=== PATIENT | male | born 1950 | race American Indian/Alaskan Native ===

== ENCOUNTER 2017-01-24 06:12 | Day surgery (SDC) | payer MEDICARE, OTHER ==
[2017-01-24] MEDS ORDERED: ECOTRIN PO ONE (06:29)
[2017-01-24 07:06] LABS: Basophils % (Auto) 0.9 % (0.0-1.8); Hematocrit 40.1 % (35.5-45.6); Hemoglobin 13.2 gm/dl (11.8-15.2); Mean Corpuscular HGB Conc 33 % (32-34); Mean Corpuscular Hemoglobin 30 pg (28-32); Mean Corpuscular Volume 91 fl (84-94); Platelet Count 240 K/mm3 (140-440); Red Blood Count 4.39 M/mm3 (3.65-5.03); Red Cell Distribution Width 14.2 % (13.2-15.2); White Blood Count 6.8 K/mm3 (4.5-11.0)
[2017-01-24 07:16] LABS: INR 0.93 (0.87-1.13)
[2017-01-24 07:17] LABS: Anion Gap 15 mmol/L; BUN/Creatinine Ratio 15.71; Blood Urea Nitrogen 11 mg/dL (9-20); Carbon Dioxide 24 mmol/L (22-30); Chloride 102.7 mmol/L (98-107); Glucose 118 mg/dL (75-100); Potassium 4.4 mmol/L (3.6-5.0); Sodium 137 mmol/L (137-145)
[2017-01-24] MEDS: NACL 0.9% 500 ML 500 ML IV SCH ×2 (07:30→07:45)
[2017-01-24] MEDS ORDERED: XYLOCAINE 2% INFILTRATI ONE (08:05)
[2017-01-24] MEDS ORDERED: HEPARIN/NS 5000 UNIT/500ML(CATH LAB) 1,000 ML IR ONE (08:05)
[2017-01-24] MEDS ORDERED: CALAN ONE (08:05)
[2017-01-24] MEDS ORDERED: HEPARIN 10,000 UNITS/10 ML ONE (08:05)
[2017-01-24] MEDS ORDERED: NITROGLYCERIN SYRINGE 3 ML ONE (08:06)
[2017-01-24] MEDS ORDERED: SUBLIMAZE ONE (08:24)
[2017-01-24] MEDS: VERSED ONE ×2 (08:31→08:45)
--- NOTE | 2017-01-24 13:21 | Short Stay Summary ---
Short Stay Documentation Date of service: 01/24/17 - History H&P: obtained from office - Allergies and Medications Current Medications: Allergies Sulfa (Sulfonamide Antibiotics) Adverse Reaction (Severe, Verified 09/16/13 06: 32) Seizure Home Medications Medication Instructions Recorded Confirmed Last Taken Type Ascorbic Acid [Vitamin C] 1 tab PO QDAY 09/16/13 01/24/17 01/23/17 History Aspirin [Aspirin TAB] 81 mg PO QDAY 09/16/13 01/24/17 01/23/17 History Cholecalciferol (Vitamin D3) 1 tab PO QDAY 09/16/13 01/24/17 01/23/17 History [Vitamin D3] Clopidogrel Bisulfate [Clopidogrel] 75 mg PO QDAY 09/16/13 01/24/17 01/23/17 History Cyanocobalamin [Vitamin B-12] 1 tab PO QDAY 09/16/13 01/24/17 01/23/17 History Gabapentin 300 mg PO BID 09/16/13 01/24/17 01/23/17 History Lansoprazole [Prevacid] 30 mg PO QDAY 09/16/13 01/24/17 01/23/17 History Lubiprostone [Amitiza] 24 mcg PO QDAY 09/16/13 01/24/17 01/23/17 History Metoprolol [Lopressor TAB] 12.5 mg PO BID 09/16/13 01/24/17 01/23/17 History [place]-3 Fatty Acids/Fish Oil [Fish 1,000 mg PO QDAY 09/16/13 01/24/17 01/23/17 History Oil] Phenytoin Sodium Extended 200 mg PO DAILY 09/16/13 01/24/17 01/23/17 History Phenytoin Sodium Extended 300 mg PO HS 09/16/13 01/24/17 01/23/17 History Simvastatin [Zocor TAB] 40 mg PO QHS 09/16/13 01/24/17 01/23/17 History Vitamin B Complex [Super B-50 1 tab PO QDAY 09/16/13 01/24/17 01/23/17 History Complex] Active Medications Sodium Chloride (Nacl 0.9% 500 Ml) 500 mls @ 50 mls/hr IV DIRECT LUL Stop: 01/24/17 16:59 Last Admin: 01/24/17 07:45 Dose: 50 mls/hr - Physical exam General appearance: no acute distress Integumentary: no rash HEENT: Atraumatic Lungs: Clear to auscultation Breasts: deferred Heart: Regular rate Gastrointestinal: normal Male Genitourinary: deferred Female Genitourinary: deferred Rectal Exam: deferred Extremities: no ischemia Neurological: Normal gait - Brief post op/procedure progress note Date of procedure: 01/24/17 Pre-op diagnosis: Shortness of breath, abnormal MPI Post-op diagnosis: same Procedure: LHC, LV gram Anesthesia: MAC Findings: See report Surgeon: BRENDA BURDICK Estimated blood loss: none Pathology: none Condition: stable - Hospital course Hospital course: Uneventful - Disposition Condition at discharge: Good Disposition: DISCHARGED TO HOME OR SELFCARE Short Stay Discharge Plan Activity: advance as tolerated Weight Bearing Status: Partial Weight Bearing (less than 20 lbs) Diet: low fat, low cholesterol, low salt Follow up with: BERNARDO MYERS MD [Primary Care Provider] - 7 Days
[2017-01-24 13:46] VITALS: BP 136/83
--- NOTE | 2017-01-24 15:06 | Cardiac Catherization Report ---
LEFT HEART CATHETERIZATION INDICATION: Shortness of breath, abnormal MPI. PROCEDURES PERFORMED: 1. Selective left and right coronary angiography. 2. Left ventriculography. DESCRIPTION OF PROCEDURE: 1. After obtaining written consent, the patient was draped using sterile technique. 2. A 2% lidocaine was injected into the right wrist. 3. A 5-Albanian vascular sheath was inserted into the right radial artery. 4. A 5-Albanian JL3.5 catheter was used to selectively engage the left coronary artery. 5. A 5-Albanian JR4 catheter was used to selectively engage the right coronary artery. 6. A 5-Albanian JR4 catheter was used to hand inject the left ventriculogram. 7. No complications occurred during the procedure. ESTIMATED BLOOD LOSS: Minimal. SPECIMEN REMOVED: None. FINDINGS: HEMODYNAMICS: Aortic pressure was 95/56 and the left ventricular systolic pressure was 98 mmHg. The left ventricular end-diastolic pressure was measured at 16 mmHg. No significant gradient was noted across left ventricular outflow tract. CARDIAC STRUCTURES: There is a moderate global left ventricular hypokinesis with an ejection fraction estimated between 35-40%. CORONARY ANATOMY: 1. This is a right dominant circulation. 2. The left main appears to be angiographically normal. 3. The left anterior descending artery has evidence of a patent stent noted in the mid segment. There is a 40% tubular in-stent restenosis noted within the stent. There is 50% of the ostium of the second diagonal artery from the stent. The distal left anterior descending artery has mild diffuse nonobstructive luminal irregularities. 4. The left circumflex artery has evidence of a 50% stenosis in the mid segment just proximal to the takeoff of a large obtuse marginal. The distal AV groove vessel is very small in caliber and appears to be diffusely diseased. 5. The right coronary artery is a dominant vessel. There is a long stent noted in the right coronary artery extending from the proximal all the way to the distal segments. There is tubular in-stent restenosis of the stent extending from the mid into the distal right coronary artery. Right at the crux, there is approximately an 80% tubular stenosis within the previously placed stent. The distal right coronary artery has mild luminal irregularities in the PDA and PLVB. IMPRESSION: 1. Patent stent noted in the mid LAD with 40% in-stent restenosis, unchanged from previous coronary angiogram done in 2013. 2. A 50% focal stenosis in the left circumflex artery, unchanged from the previous catheterization done in 2013. 3. An 80% focal stenosis of the distal right coronary artery stent, this appears to be worse compared to the cath done in 2013. The distal lesion was reviewed by Dr. Baker, who will be pending percutaneous coronary intervention next week. 4. Moderate global left ventricular hypokinesis and an ejection fraction estimated between 35 and 40%. 5. LVEDP measured at 16 mmHg. RECOMMENDATIONS: Proceed with percutaneous coronary intervention to the 80% focal in-stent restenosis of the distal right coronary artery. [facility]# [id number] PRITESH/PIERRE
== END 2017-01-24 14:20 | disposition home or self-care (01) ==
LOC: OPU 06:12
PROVIDERS: ATTEND Internal Medicine
DX: I25.10 Atherosclerotic heart disease of native coronary artery without angina pectoris (principal); E78.5 Hyperlipidemia, unspecified; I10 Essential (primary) hypertension; K21.9 Gastro-esophageal reflux disease without esophagitis; Z87.891 Personal history of nicotine dependence; Z95.810 Presence of automatic (implantable) cardiac defibrillator
CPT/HCPCS: 36415; 80048; 85025; 85610; 85730; 93005; 93010; 93458; C1894; J1644; J2250; J3010; J7040; Q9967

== ENCOUNTER 2017-01-27 07:04 | Inpatient (IN) | payer MEDICARE ==
[2017-01-27] MEDS ORDERED: NACL 0.9% 500 ML 500 ML IV SCH (08:00)
[2017-01-27] MEDS ORDERED: CALAN ONE (09:24)
[2017-01-27] MEDS ORDERED: NITROGLYCERIN SYRINGE 3 ML ONE (09:25)
[2017-01-27] MEDS: SUBLIMAZE ONE ×2 (10:09→10:25)
[2017-01-27] MEDS: VERSED ONE ×2 (10:09→10:25)
[2017-01-27] MEDS: XYLOCAINE 2% INFILTRATI ONE ×2 (10:09→10:25)
[2017-01-27] MEDS: HEPARIN/NS 5000 UNIT/500ML(CATH LAB) 1,000 ML IR ONE ×2 (10:10→10:25)
[2017-01-27] MEDS: HEPARIN 10,000 UNITS/10 ML ONE ×2 (10:28→10:45)
[2017-01-27] MEDS ORDERED: ALUM-MAG HYDROX-SIMETH 200-200-20MG/5ML ONE (10:36)
[2017-01-27] MEDS ORDERED: PLAVIX ONE (10:36)
[2017-01-27] MEDS ORDERED: ZOFRAN IV PRN (11:21)
--- NOTE | 2017-01-27 11:21 | Event Note ---
Date: 01/27/17 Successful outpatient PCI with coronary stenting of the 80% instent restenosis of the mid RCA. Excellent result-patient will be admitted overnight for post PCI management. Anticipated discharge tomorrow morning.
[2017-01-27] MEDS ORDERED: NACL 0.9% 1000 ML 1,000 ML IV SCH (12:00)
[2017-01-27] MEDS ORDERED: ULTRAM ONE (14:21)
[2017-01-27] MEDS: ULTRAM PO PRN ×2 (14:28→19:09)
[2017-01-27] MEDS ORDERED: NACL 0.9% 1000 ML 1,000 ML ONE (15:23)
--- NOTE | 2017-01-27 15:27 | Cardiac Catherization Report ---
CORONARY ANGIOPLASTY REPORT REASON FOR PROCEDURE: The patient is a 66-year-old man with multivessel coronary artery disease and dilated cardiomyopathy. He has an indwelling cardiac defibrillator. Last week, he underwent a cardiac catheterization, which revealed nonobstructive disease of the mid LAD and mid circumflex. The right coronary artery was extensively stented, through the entire mid segment, around the acute margin and into the distal AV groove segment. There was a focal, 75-80% in-stent restenosis around the acute margin. He returns today to the labor relations consultant for coronary intervention to the mid right coronary artery in-stent restenosis. PROCEDURE: The patient was prepped and draped in a sterile fashion after informed consent. The right femoral artery was entered using the Seldinger technique followed by placement of a 6-Tanzanian sheath. We selected a #4 right Elizabeth guiding catheter and advanced to the right coronary ostium. Pre-intervention angiograms were taken. A 0.014 inch Child Watch Attendant 50 guidewire was then introduced into the right coronary artery, across the lesional segment around the acute margin. In the primary stenting maneuver, we deployed a 3.5 x 15 mm Resolute drug-eluting stent to the lesional segment, stent to optimal pressures. Additional balloon angioplasty was performed, following which there was an excellent angiographic result, 0 residual stenosis and PINA 3 flow was maintained down the vessel. We did note a diffuse moderate atherosclerosis of the proximal to mid and distal AV groove segments, these do not require coronary intervention at this time and I recommended for medical management. The procedure was well tolerated by the patient and no complications. CONCLUSION: Successful angioplasty and stenting of the mid right coronary artery. A 75-80% in-stent restenosis was treated successfully with a 3.5 x 15 mm Resolute drug-eluting stent, with excellent angiographic result. JOB# [id number] CLAUDINE/PIERRE
--- NOTE | 2017-01-27 15:36 | Admit Criteria Form ---
Admission Criteria Documentation: TELEMETRY CARE Telemetry Admission Guidelines (Place 'X' for any and all applicable criteria): Admission to telemetry [A] may be indicated for ANY ONE of the following(1)(2)(3 )(4)(5): [ X]I. Cardiac disease, including ANY ONE of the following (9)(10)(11)(12)( 13): [ ]a) Postacute DE [ ]b) Low-risk patients with ST-segment elevation DE who have undergone successful percutaneous coronary intervention [ ]c) Unstable angina [ ]d) Suspected DE (until it is ruled out) [ ]e) Post cardiac surgery (first 48 to 72 hours unless complications occur) [ ]f) Acute arrhythmias (including significant tachycardia or bradycardia) [B] [ ]g) Firing of an implantable cardioverter defibrillator [C] [ ]h) Suspected pacemaker or implantable cardioverter defibrillator malfunction (10) [ ]i) New administration or adjustment of an antiarrhythmic drug [D ] [ ]j) Child admitted for acute congestive heart failure [ ]j) Long QT syndrome [ ]k) Advanced heart block (eg, second-degree Mobitz type II, third- degree heart block) [ ]l) Acute myocarditis or pericarditis [ X]m) Short-term (ambulatory or inpatient) monitoring after a cardiac procedure as indicated by ANY ONE of the following [E]: [ ]i) Electrophysiologic studies [X ]ii) Percutaneous coronary intervention with stent placement [ ]iii) Pacemaker placement with cardiac conduction defect [ ]iv) Implantable cardiac defibrillator placement [ ]II. Drug overdose or poisoning with substance that causes arrhythmias or QT prolongation (eg, phenothiazines, sympathomimetic agents, cyclic antidepressants, digitalis, antiarrhythmic drugs)(15) [ ]III. Short-term (ambulatory or inpatient) monitoring after therapeutic or diagnostic procedure requiring conscious sedation or anesthesia (eg, endoscopy, elective cardioversion) [ ]IV. Acute cerebrovascular even[F](18) [ ]V. Massive blood transfusion (eg, at least 10 units of packed red blood cells in 24 hours) [ ]. Variceal bleeding after endoscopy, sclerotherapy, or IV vasopressin [ ]VII. Uncorrected electrolyte abnormalities associated with an increased risk of dangerous arrhythmia [G]; examples include [ ]a) Hyperkalemia with attributable ECG changes [ ]b) Potassium greater than 6.5 mmol/L (mEq/L) in a patient without history of chronic renal disease [ ]c) Prolonged QT attributed to hypokalemia, hypomagnesemia, or hypocalcemia [ ]VIII.Unexplained syncope or other neurologic event suspected of being due to arrhythmia due to a finding that increases risk; examples include(19)(20)(21): [ ]a) High-risk ECG findings (eg, bifascicular block, bradycardia, abnormal QT interval, ventricular pre- excitation) [ ]b) History of previous syncope due to arrhythmia [ ]c) Abnormal ventricular function (eg, reduced ejection fraction ) [ ]d) Exertional or supine syncope [ ]e) Concerning syncope characteristics (eg, sudden loss of consciousness without prodrome) [ ]f) Family history of sudden [ ]g) Use of arrhythmogenic medication [ ]h) Suspected cardiac ischemia [ ]i) Known channelopathy (eg, long QT syndrome, Brugada syndrome, or catecholaminergic paroxysmal ventricular tachycardia) [ ]j) Known structural heart disease (eg, hypertrophic cardiomyopathy , severe valvular disease) [ ]k) Palpitations preceding syncope The original [employer] content created by [employer] has been revised. The portions of the content which have been revised are identified through the use of italic text or in bold, and [facility] [employer] has neither reviewed nor approved the modified material. All other unmodified content is copyright [employer]. Please see references footnoted in the original [employer] edition 2016 Admission Criteria Met: Yes
[2017-01-27] MEDS: NITRO-BID 2% TP SCH ×2 (18:53→19:03)
[2017-01-27] MEDS ORDERED: AMBIEN PO PRN (22:00)
[2017-01-27] MEDS ORDERED: ZOCOR PO SCH (22:00)
[2017-01-27] MEDS: LOPRESSOR PO SCH (22:08)
[2017-01-27] MEDS: NEURONTIN PO SCH (22:08)
[2017-01-28] MEDS: ULTRAM PO PRN ×2 (03:40→09:45)
[2017-01-28] MEDS: NITRO-BID 2% TP SCH ×2 (05:42→09:46)
[2017-01-28 07:49] LABS: Basophils % (Auto) 0.4 % (0.0-1.8); Hematocrit 42.6 % (35.5-45.6); Hemoglobin 14.1 gm/dl (11.8-15.2); Mean Corpuscular HGB Conc 33 % (32-34); Mean Corpuscular Hemoglobin 30 pg (28-32); Mean Corpuscular Volume 91 fl (84-94); Platelet Count 198 K/mm3 (140-440); Red Blood Count 4.68 M/mm3 (3.65-5.03); Red Cell Distribution Width 14.1 % (13.2-15.2); White Blood Count 8.7 K/mm3 (4.5-11.0)
[2017-01-28 07:59] LABS: Creatine Kinase MB 2.7 ng/mL (0.0-4.0)
[2017-01-28 08:05] LABS: Anion Gap 15 mmol/L; Blood Urea Nitrogen 8 mg/dL (9-20); Carbon Dioxide 26 mmol/L (22-30); Chloride 102.2 mmol/L (98-107); Creatine Kinase 88 units/L (55-170); Glucose 120 mg/dL (75-100); Potassium 4.9 mmol/L (3.6-5.0); Sodium 138 mmol/L (137-145)
--- NOTE | 2017-01-28 08:35 | XRay Report ---
AP CHEST: HISTORY: chest pain AP view of the chest demonstrates a normal mediastinal and cardiac contour with clear lungs and normal bony and soft tissue structures. Single lead pacemaker terminates in the right ventricle. IMPRESSION: Unremarkable AP chest.
[2017-01-28] MEDS: LOPRESSOR PO SCH (09:43)
[2017-01-28] MEDS: NEURONTIN PO SCH (09:45)
[2017-01-28] MEDS ORDERED: PLAVIX PO SCH (10:00)
[2017-01-28] MEDS ORDERED: ASPIRIN PO SCH (10:00)
[2017-01-28] MEDS ORDERED: PROTONIX PO SCH (10:00)
[2017-01-28] MEDS ORDERED: NON-FORMULARY (Lansoprazole [Prevacid] 30 MG) PO SCH (10:00)
[2017-01-28] MEDS ORDERED: BABY ASPIRIN PO SCH (10:00)
[2017-01-28] MEDS ORDERED: DILANTIN PO SCH (10:00)
[2017-01-28] MEDS ORDERED: NON-FORMULARY (Phenytoin Sodium Extended [Phenytoin Sodium Extended] 200 MG) PO SCH (10:00)
--- NOTE | 2017-01-28 11:29 | Short Stay Summary ---
Short Stay Documentation Date of service: 01/28/17 - History H&P: obtained from office - Allergies and Medications Current Medications: Allergies Sulfa (Sulfonamide Antibiotics) Adverse Reaction (Severe, Verified 09/16/13 06: 32) Seizure Home Medications Medication Instructions Recorded Confirmed Last Taken Type Ascorbic Acid [Vitamin C] 1 tab PO QDAY 09/16/13 01/27/17 01/26/17 History Aspirin [Aspirin TAB] 81 mg PO QDAY 09/16/13 01/27/17 01/27/17 History Cholecalciferol (Vitamin D3) 1 tab PO QDAY 09/16/13 01/27/17 01/26/17 History [Vitamin D3] Clopidogrel Bisulfate [Clopidogrel] 75 mg PO QDAY 09/16/13 01/27/17 01/27/17 History Cyanocobalamin [Vitamin B-12] 1 tab PO QDAY 09/16/13 01/27/17 01/26/17 History Gabapentin 300 mg PO BID 09/16/13 01/27/17 01/26/17 History Lansoprazole [Prevacid] 30 mg PO QDAY 09/16/13 01/27/17 01/26/17 History Lubiprostone [Amitiza] 24 mcg PO QDAY 09/16/13 01/27/17 01/26/17 History Metoprolol [Lopressor TAB] 12.5 mg PO BID 09/16/13 01/27/17 01/26/17 History [place]-3 Fatty Acids/Fish Oil [Fish 1,000 mg PO QDAY 09/16/13 01/27/17 01/26/17 History Oil] Phenytoin Sodium Extended 200 mg PO DAILY 09/16/13 01/27/17 01/27/17 History Phenytoin Sodium Extended 300 mg PO HS 09/16/13 01/27/17 01/26/17 History Simvastatin [Zocor TAB] 40 mg PO QHS 09/16/13 01/27/17 01/26/17 History Vitamin B Complex [Super B-50 1 tab PO QDAY 09/16/13 01/27/17 01/26/17 History Complex] Active Medications Aspirin (Baby Aspirin) 81 mg PO QDAY [facility] Last Admin: 01/28/17 11:22 Dose: 81 mg Clopidogrel Bisulfate (Plavix) 75 mg PO QDAY [facility] Last Admin: 01/28/17 09:46 Dose: 75 mg Gabapentin (Neurontin) 300 mg PO BID [facility] Last Admin: 01/28/17 09:45 Dose: 300 mg Metoprolol Tartrate (Lopressor) 12.5 mg PO BID [facility] Last Admin: 01/28/17 09:43 Dose: 12.5 mg Nitroglycerin (Nitro-Bid 2%) 1 inch TP QIDNTG [facility] PRN Reason: Protocol Last Admin: 01/28/17 09:46 Dose: 1 inch Ondansetron HCl (Zofran) 4 mg IV Q8H PRN PRN Reason: N/V unrelieved by Reglan Last Admin: 01/27/17 19:02 Dose: 4 mg Pantoprazole Sodium (Protonix) 40 mg PO DAILY [facility] Last Admin: 01/28/17 09:45 Dose: 40 mg Phenytoin (Dilantin) 200 mg PO DAILY [facility] Last Admin: 01/28/17 09:46 Dose: 200 mg Simvastatin (Zocor) 40 mg PO QHS [facility] Last Admin: 01/27/17 22:08 Dose: 40 mg Tramadol HCl (Ultram) 50 mg PO Q4H PRN PRN Reason: Pain, Mild (1-3) Last Admin: 01/28/17 09:45 Dose: 50 mg Zolpidem Tartrate (Ambien) 5 mg PO QHS PRN PRN Reason: Sleep - Physical exam General appearance: no acute distress HEENT: PERRLA Lungs: Clear to auscultation Heart: Regular rate - Brief post op/procedure progress note Procedure: Successful outpatient PCI with coronary stenting of the 80% instent restenosis of the mid RCA. Condition: stable - Hospital course Hospital course: Stable overnight observation. - Disposition Condition at discharge: Good Disposition: DISCHARGED TO HOME OR SELFCARE Short Stay Discharge Plan Activity: other (POST CARDIAC CATH INSTRUCTIONS) Diet: low fat, low cholesterol, low salt Follow up with: BERNARDO MYERS MD [Primary Care Provider] - 7 Days ATIF AC MD [Staff Physician] - 7 Days
[2017-01-28 12:24] VITALS: BP 119/78
== END 2017-01-28 15:22 | disposition home or self-care (01) | DRG 247 ==
LOC: OPU 07:04 → 4A 10:04 → OBSVTOIN 01-28 10:04
PROVIDERS: ADMIT Internal Medicine Cardiovascular Disease; ATTEND Internal Medicine Cardiovascular Disease
PROC: 027034Z Dilation of Coronary Artery, One Artery with Drug-eluting Intraluminal Device, Percutaneous Approach (ICD-10-PCS; principal; 2017-01-27)
DX: T82.855A Stenosis of coronary artery stent, initial encounter (principal); I42.0 Dilated cardiomyopathy; I10 Essential (primary) hypertension; I25.10 Atherosclerotic heart disease of native coronary artery without angina pectoris; Y92.89 Other specified places as the place of occurrence of the external cause; Y83.8 Other surgical procedures as the cause of abnormal reaction of the patient, or of later complication, without mention of misadventure at the time of the procedure; Z98.61 Coronary angioplasty status; Z88.2 Allergy status to sulfonamides; Z79.82 Long term (current) use of aspirin
CPT/HCPCS: 36415; 71010; 80048; 82550; 82553; 84484; 85025; 85347; 92928; 93005; 93010; C1760; C1769; C1874; C1887; C1894; C9600; G0378; J1644; J2250; J2405; J3010; J7030; J7040; Q9967

== ENCOUNTER 2018-03-22 17:11 | Inpatient (IN) | payer MEDICARE ==
[2018-03-22 17:43] LABS: Hematocrit 39.9 % (35.5-45.6); Hemoglobin 13.3 gm/dl (11.8-15.2); Mean Corpuscular HGB Conc 33 % (32-34); Mean Corpuscular Hemoglobin 31 pg (28-32); Mean Corpuscular Volume 92 fl (84-94); Platelet Count 201 K/mm3 (140-440); Red Blood Count 4.35 M/mm3 (3.65-5.03)
[2018-03-22] MEDS ORDERED: NACL 0.9% 500 ML 500 ML IV ONE (17:51)
[2018-03-22] MEDS ORDERED: ASPIRIN PO ONE (17:51)
--- NOTE | 2018-03-22 17:54 | Emergency Department Report ---
ED General Adult HPI - General Chief complaint: Chest Pain Stated complaint: CHEST PAIN Time Seen by Provider: 03/22/18 17:31 Source: patient, EMS Mode of arrival: Stretcher Limitations: No Limitations - History of Present Illness Initial comments: 67-year-old male does have a history of a year ago of a right coronary artery stenosis that was stented per Dr. Olivia Ureña, he does get intermittent angina he takes nitroglycerin for. He says he hasn't been feeling well since December when he had a fall with concussion. For the last week or so he's been having intermittent vague malaise with cold or flu symptoms. Woke up with a sweat a week ago not sure if he's having intermittent chest pain. Does have a cough nonproductive for 3 days. He was seen at urgent care today for his stuffy nose and facial pain that he thinks his sinusitis they referred him to the ED because of the cough and chest pain with history of RCA stent. He arrives with intermittent chest pain off and on for a week not sure if it is similar to his cardiac pain. Not sure if it's angina not sure if it's better with nitroglycerin nonproductive cough and intermittent viral flu type symptoms. Facial pain and "sinusitis" no stiff neck no headache denies fever but says he' s been getting sweaty.and int cp. no stiff neck no sidhu -: Gradual, days(s) Location: head, chest Radiation: non-radiation Severity scale (0 -10): 6 Quality: burning Consistency: intermittent, now resolved - Related Data Home Medications Medication Instructions Recorded Confirmed Last Taken Ascorbic Acid [Vitamin C] 1 tab PO QDAY 09/16/13 01/27/17 01/26/17 Aspirin [Aspirin TAB] 81 mg PO QDAY 09/16/13 01/27/17 01/27/17 Cholecalciferol (Vitamin D3) 1 tab PO QDAY 09/16/13 01/27/17 01/26/17 [Vitamin D3] Clopidogrel Bisulfate [Clopidogrel] 75 mg PO QDAY 09/16/13 01/27/17 01/27/17 Cyanocobalamin [Vitamin B-12] 1 tab PO QDAY 09/16/13 01/27/17 01/26/17 Gabapentin 300 mg PO BID 09/16/13 01/27/17 01/26/17 Lansoprazole [Prevacid] 30 mg PO QDAY 09/16/13 01/27/17 01/26/17 Lubiprostone [Amitiza] 24 mcg PO QDAY 09/16/13 01/27/17 01/26/17 Metoprolol [Lopressor TAB] 12.5 mg PO BID 09/16/13 01/27/17 01/26/17 [place]-3 Fatty Acids/Fish Oil [Fish 1,000 mg PO QDAY 09/16/13 01/27/17 01/26/17 Oil] Phenytoin Sodium Extended 200 mg PO DAILY 09/16/13 01/27/17 01/27/17 Phenytoin Sodium Extended 300 mg PO HS 09/16/13 01/27/17 01/26/17 Simvastatin [Zocor TAB] 40 mg PO QHS 09/16/13 01/27/17 01/26/17 Vitamin B Complex [Super B-50 1 tab PO QDAY 09/16/13 01/27/17 01/26/17 Complex] Allergies Allergy/AdvReac Type Severity Reaction Status Date / Time Sulfa (Sulfonamide AdvReac Severe Seizure Verified 09/16/13 06:32 Antibiotics) ED Review of Systems ROS: Stated complaint: CHEST PAIN Other details as noted in HPI Comment: All other systems reviewed and negative Constitutional: diaphoresis, malaise ENT: denies: dental pain, hearing loss, epistaxis Respiratory: cough, SOB with exertion. denies: orthopnea, shortness of breath, SOB at rest, stridor Cardiovascular: chest pain. denies: palpitations, orthopnea, syncope Gastrointestinal: nausea. denies: abdominal pain, vomiting, diarrhea, constipation, hematemesis, melena, hematochezia Neurological: denies: numbness, paresthesias, confusion, abnormal gait, vertigo ED Past Medical Hx - Past Medical History Previous Medical History?: Yes Hx Hypertension: Yes (1998) Hx Heart Attack/AMI: Yes Hx Congestive Heart Failure: Yes Hx Deep Vein Thrombosis: Yes Hx GERD: Yes Hx Arthritis: Yes Hx Headaches / Migraines: Yes Hx Seizures: Yes Hx Asthma: Yes Hx COPD: Yes - Surgical History Hx Coronary Stent: Yes (2003 x3, 2006 x1, 2008 x1, 2010 x1) Hx Internal Defibrillator: Yes (2007) Hx Cholecystectomy: Yes - Social History Smoking Status: Former Smoker Substance Use Type: None - Medications Home Medications: Home Medications Medication Instructions Recorded Confirmed Last Taken Type Ascorbic Acid [Vitamin C] 1 tab PO QDAY 09/16/13 01/27/17 01/26/17 History Aspirin [Aspirin TAB] 81 mg PO QDAY 09/16/13 01/27/17 01/27/17 History Cholecalciferol (Vitamin D3) 1 tab PO QDAY 09/16/13 01/27/17 01/26/17 History [Vitamin D3] Clopidogrel Bisulfate [Clopidogrel] 75 mg PO QDAY 09/16/13 01/27/17 01/27/17 History Cyanocobalamin [Vitamin B-12] 1 tab PO QDAY 09/16/13 01/27/17 01/26/17 History Gabapentin 300 mg PO BID 09/16/13 01/27/17 01/26/17 History Lansoprazole [Prevacid] 30 mg PO QDAY 09/16/13 01/27/17 01/26/17 History Lubiprostone [Amitiza] 24 mcg PO QDAY 09/16/13 01/27/17 01/26/17 History Metoprolol [Lopressor TAB] 12.5 mg PO BID 09/16/13 01/27/17 01/26/17 History [place]-3 Fatty Acids/Fish Oil [Fish 1,000 mg PO QDAY 09/16/13 01/27/17 01/26/17 History Oil] Phenytoin Sodium Extended 200 mg PO DAILY 09/16/13 01/27/17 01/27/17 History Phenytoin Sodium Extended 300 mg PO HS 09/16/13 01/27/17 01/26/17 History Simvastatin [Zocor TAB] 40 mg PO QHS 09/16/13 01/27/17 01/26/17 History Vitamin B Complex [Super B-50 1 tab PO QDAY 09/16/13 01/27/17 01/26/17 History Complex] ED Physical Exam - General Limitations: No Limitations General appearance: alert - Head Head exam: Present: atraumatic, normocephalic - Eye Eye exam: Present: normal appearance, PERRL, EOMI - ENT ENT exam: Present: normal exam, normal orophraynx, other (tenderness over sinusss tenderne) - Neck Neck exam: Present: normal inspection. Absent: tenderness, meningismus - Respiratory Respiratory exam: Present: normal lung sounds bilaterally. Absent: respiratory distress, wheezes, rales, rhonchi, stridor - Cardiovascular Cardiovascular Exam: Present: regular rate, normal rhythm - GI/Abdominal GI/Abdominal exam: Present: soft. Absent: tenderness, guarding, rebound, rigid , mass, pulsatile mass - Extremities Exam Extremities exam: Present: normal inspection, normal capillary refill. Absent: pedal edema, joint swelling, calf tenderness - Back Exam Back exam: Present: normal inspection. Absent: CVA tenderness (L), muscle spasm , paraspinal tenderness, vertebral tenderness - Neurological Exam Neurological exam: Present: alert, oriented X3, CN II-XII intact. Absent: motor sensory deficit - Psychiatric Psychiatric exam: Present: anxious, flat affect - Skin Skin exam: Absent: cyanosis, diaphoretic, erythema, urticaria, vesicles, petechiae, pallor ED Course Vital Signs 03/22/18 17:14 Temperature 98.8 F Pulse Rate 72 Respiratory 14 Rate Blood Pressure 113/70 O2 Sat by Pulse 100 Oximetry ED Medical Decision Making - Lab Data Result diagrams: 03/22/18 17:15 03/22/18 17:15 - EKG Data -: EKG Interpreted by Nd EKG shows normal: sinus rhythm - EKG Data When compared to previous EKG there are: no significant change Interpretation: other (EKG shows no acute change from January 2017) - Radiology Data Radiology results: report reviewed - Medical Decision Making Patient was given Levaquin, CT shows likely sinusitis without intracranial abnormality. He does have a supple neck and is afebrile. Given the nature of the malaise with intermittent chest pain that could represent an unstable angina I did discuss case with Dr. Nuno Zelaya who was on-call for Dr. leger he did recommend admitted for further evaluation of unstable angina. Patient did have a initial negative troponin but hx is worriseome for worsening and progression of his angina. he will be placed on a heparin drip he was informed of risks including bleeding he did consent to have, he has no contraindications at this time he denies active GI bleed no recent surgery and consented to have drip case was discussed with Dr. Haji of hospital service who will admit for further evaluation of unstable angina with sinusitis Critical care time in (mins) excluding proc time.: 45 Critical care attestation.: If time is entered above; I have spent that time in minutes in the direct care of this critically ill patient, excluding procedure time. ED Disposition Clinical Impression: Unstable angina, Sinusitis Disposition: OP ADMIT IP TO THIS HOSP Is pt being admited?: Yes Condition: Stable Instructions: Angina (ED) Time of Disposition: 19:41
[2018-03-22 17:58] LABS: BUN/Creatinine Ratio 9; Blood Urea Nitrogen 9 mg/dL (9-20); Calcium 9.3 mg/dL (8.4-10.2); Hemolysis Index 0
[2018-03-22 18:25] LABS: Alanine Aminotransferase 21 units/L (7-56); Albumin 4.6 g/dL (3.9-5); Lipase 26 units/L (13-60)
[2018-03-22 18:31] LABS: Basophils % (Manual) 0 % (0.0-1.8); Eosinophils % (Manual) 0 % (0.0-4.3); RBC Morphology Normal; Total Cells Counted 100
[2018-03-22 18:31] LABS: Bilirubin,Direct < 0.2 mg/dL (0-0.2)
--- NOTE | 2018-03-22 18:52 | Cat Scan Report ---
FINAL REPORT EXAM: CT HEAD/BRAIN WO CON HISTORY: sinusitis/sidhu/dizzy TECHNIQUE: CT head without contrast PRIORS: None. FINDINGS: No acute intra-axial or extra-axial hemorrhage is identified. There is no evidence of midline shift or mass effect. The ventricles and sulci are within normal limits. [place]-white matter differentiation is intact. No acute parenchymal abnormalities seen. Bony calvarium is grossly intact. There is increased opacity throughout the right maxillary sinus which appears expansile. IMPRESSION: Marked increased opacity throughout the right maxillary sinus which appears expansile. Findings most likely reflect mucocele No acute intracranial abnormality identified
--- NOTE | 2018-03-22 19:03 | XRay Report ---
FINAL REPORT EXAM: XR CHEST ROUTINE 2V HISTORY: cough TECHNIQUE: Chest PA and lateral PRIORS: None. FINDINGS: Cardiac and mediastinal contours are unremarkable. No focal pulmonary infiltrate is identified. No pleural fluid collection seen. Pulmonary vasculature is unremarkable. Single lead pacemaker/AICD present. IMPRESSION: Pacemaker/AICD No acute abnormality identified in the chest
[2018-03-22] MEDS ORDERED: LEVAQUIN PO ONE (19:29)
[2018-03-22 19:33] LABS: Bacteria,Urine 1+ /HPF (Negative); Bilirubin,Urine NEG (Negative); Blood,Urine NEG (Negative); Color,Urine Yellow (Yellow); Mucus,Urine FEW /HPF; Protein,Urine <15 mg/dL mg/dL (Negative); Urobilinogen,Urine < 2.0 mg/dL (<2.0); WBC,Urine < 1.0 /HPF (0.0-6.0)
[2018-03-22] MEDS ORDERED: HEPARIN 10,000 UNITS/10 ML IV ONE (19:42)
[2018-03-22 20:04] LABS: INR 0.88 (0.87-1.13)
--- NOTE | 2018-03-22 20:15 | History and Physical Report ---
History of Present Illness Chief complaint: My chest is hurting History of present illness: 67 YO Male with HTN, MS, CHF S/P ICD Placement, DVT, GERD, OA, Migraine Headache , Seizure Disorder, Asthma, COPD, CAD S/P Stent Placement presents to ED for evaluation. Pt states that he has experienced pain in his chest for the past 1 week, with worsening symptoms over the past 1 day. Pain is 6/10, radiated to the left arm and shoulder, substernal, initially was intermittent but now it is constant, burning, diaphoresis, not worsened with exertion, or relieved with rest, mildly improved with nitro tabs. EMS notified and patient transported to [facility] for further care and evaluation. Pt seen and evaluated in ED and found to have Unstable angina. Cardiology consulted in ED. Pt initiated on therapeutic anticoagulation and admitted to telemetry. Past History Past Medical History: acute MS, arthritis, CAD, COPD, DVT, GERD, hypertension, seizures, other Past Surgical History: cholecystectomy, Other (ICD, Cardiac Stent Placement .) Social history: Family history: hypertension Medications and Allergies Allergies Allergy/AdvReac Type Severity Reaction Status Date / Time Sulfa (Sulfonamide AdvReac Severe Seizure Verified 09/16/13 06:32 Antibiotics) Home Medications Medication Instructions Recorded Confirmed Last Taken Type Ascorbic Acid [Vitamin C] 1 tab PO QDAY 09/16/13 01/27/17 01/26/17 History Aspirin [Aspirin TAB] 81 mg PO QDAY 09/16/13 01/27/17 01/27/17 History Cholecalciferol (Vitamin D3) 1 tab PO QDAY 09/16/13 01/27/17 01/26/17 History [Vitamin D3] Clopidogrel Bisulfate [Clopidogrel] 75 mg PO QDAY 09/16/13 01/27/17 01/27/17 History Cyanocobalamin [Vitamin B-12] 1 tab PO QDAY 09/16/13 01/27/17 01/26/17 History Gabapentin 300 mg PO BID 09/16/13 01/27/17 01/26/17 History Lansoprazole [Prevacid] 30 mg PO QDAY 09/16/13 01/27/17 01/26/17 History Lubiprostone [Amitiza] 24 mcg PO QDAY 09/16/13 01/27/17 01/26/17 History Metoprolol [Lopressor TAB] 12.5 mg PO BID 09/16/13 01/27/17 01/26/17 History [place]-3 Fatty Acids/Fish Oil [Fish 1,000 mg PO QDAY 09/16/13 01/27/17 01/26/17 History Oil] Phenytoin Sodium Extended 200 mg PO DAILY 09/16/13 01/27/17 01/27/17 History Phenytoin Sodium Extended 300 mg PO HS 09/16/13 01/27/17 01/26/17 History Simvastatin [Zocor TAB] 40 mg PO QHS 09/16/13 01/27/17 01/26/17 History Vitamin B Complex [Super B-50 1 tab PO QDAY 09/16/13 01/27/17 01/26/17 History Complex] Active Meds: Active Medications Heparin Sodium/Sodium Chloride (Heparin/ 0.45% Nacl-25,000 Unit/500 Ml) 25,000 unit in 500 mls @ 20 mls/hr IV TITRATE [facility]; Protocol Review of Systems Constitutional: no fever, no chills, no sweats Ears, nose, mouth and throat: no ear pain, no ear discharge, no tinnitis, no decreased hearing, no nose pain, no nasal congestion Cardiovascular: chest pain, no orthopnea, no palpitations Respiratory: no cough, no cough with sputum, no excessive sputum Gastrointestinal: no abdominal pain, no nausea, no vomiting, no diarrhea Genitourinary Male: no hematuria, no flank pain, no discharge, no urinary frequency, no urinary hesitancy Rectal: no pain, no incontinence, no bleeding Musculoskeletal: no neck stiffness, no neck pain, no shooting arm pain, no arm numbness/tingling, no low back pain, no shooting leg pain Integumentary: no rash, no pruritis, no redness, no sores, no wounds, no jaundice Neurological: no paralysis, no weakness, no parathesias, no numbness, no tingling, no seizures, no syncope Psychiatric: no anxiety, no memory loss, no change in sleep habits, no sleep disturbances, no insomnia, no hypersomnia, no change in appetite, no change in libido Endocrine: no cold intolerance, no heat intolerance, no polyphagia, no excessive thirst, no polydipsia, no polyuria, no nocturia Hematologic/Lymphatic: no easy bruising, no easy bleeding, no lymphadenopathy, no lymphedema Allergic/Immunologic: no urticaria, no allergic rhinitis, no wheezing, no persistent infections, no anaphylaxis, no angioedema Exam - Constitutional Vitals: Temp Pulse Resp BP Pulse Ox 98.8 F 72 14 113/70 100 03/22/18 17:14 03/22/18 17:14 03/22/18 17:14 03/22/18 17:14 03/22/18 17:14 General appearance: Present: mild distress - EENT Eyes: Present: PERRL ENT: hearing intact, clear oral mucosa - Neck Neck: Present: supple, normal ROM - Respiratory Respiratory effort: normal Respiratory: bilateral: diminished, rhonchi - Cardiovascular Heart Sounds: Present: S1 & S2. Absent: rub, click - Extremities Extremities: pulses symmetrical, No edema Peripheral Pulses: within normal limits - Abdominal General gastrointestinal: Present: soft, non-tender, non-distended, normal bowel sounds Male genitourinary: Present: normal - Integumentary Integumentary: Present: clear, warm, dry - Musculoskeletal Musculoskeletal: gait normal, strength equal bilaterally - Psychiatric Psychiatric: appropriate mood/affect, intact judgment & insight, agitated - Neurologic Neurologic: CNII-XII intact, moves all extremities Results - Labs CBC & Chem 7: 03/22/18 17:15 03/22/18 17:15 Assessment and Plan - Patient Problems (1) Unstable angina Current Visit: Yes Status: Acute Plan to address problem: Admit to telemetry, cardiology consulted in ED, Pt initiated on heparin drip in ED, Pain control, serial cardiac enzymes, ekg, supplemental oxygen. Further testing/intervention as per cardiology team. (2) CHF (congestive heart failure) Current Visit: Yes Status: Acute Qualifiers: Heart failure type: diastolic Heart failure chronicity: acute Qualified Code(s): I50.31 - Acute diastolic (congestive) heart failure Plan to address problem: Strict I/O, Monitor uop q shift, daily weight, monitor BP q shift, BNP, Chest x ray, cardiology consulted in ED, supplemental oxygen, pain control, telemetry monitoring, Afterload reduction, (3) CAD (coronary artery disease) Current Visit: Yes Status: Acute Qualifiers: Associated angina: with unstable angina Plan to address problem: Low cholesterol diet, risk factor reduction, therapeutic anticoagulation, pain control, supplemental oxygen (4) Seizure disorder Current Visit: Yes Status: Acute Plan to address problem: seizure precautions, continue prehospital medication. (5) DVT prophylaxis Current Visit: Yes Status: Acute Plan to address problem: SCD to BLE while in bed,
[2018-03-22] MEDS ORDERED: SODIUM CHLORIDE FLUSH SYRINGE 10 ML IV PRN ×2 (20:17)
[2018-03-22] MEDS ORDERED: ZOFRAN IV PRN (20:17)
[2018-03-22] MEDS ORDERED: PROVENTIL IH PRN (20:17)
[2018-03-22] MEDS ORDERED: NITROSTAT SL PRN (20:17)
[2018-03-22] MEDS ORDERED: BABY ASPIRIN PO STA (20:17)
[2018-03-22] MEDS ORDERED: TYLENOL PO PRN (20:17)
[2018-03-22] MEDS ORDERED: HEPARIN IV ONE (20:25)
[2018-03-22] MEDS: HEPARIN/ 0.45% NACL-25,000 UNIT/500 ML 25,000 UNIT/500 ML BAG IV SCH ×2 (20:38→22:43)
[2018-03-22] MEDS: MORPHINE IV PRN (20:45)
[2018-03-22] MEDS ORDERED: PHENYTOIN SODIUM 300 MG PO SCH (22:00)
[2018-03-22] MEDS ORDERED: NON-FORMULARY (Simvastatin 40 MG) PO SCH (22:00)
[2018-03-22] MEDS: NEURONTIN PO SCH (22:39)
[2018-03-22] MEDS: PRAVACHOL PO SCH (22:40)
[2018-03-22] MEDS: PEPCID PO SCH (22:40)
[2018-03-22] MEDS: DILANTIN PO SCH (22:40)
[2018-03-22] MEDS: LOPRESSOR PO SCH (22:41)
[2018-03-23] MEDS: SODIUM CHLORIDE FLUSH SYRINGE 10 ML IV SCH ×2 (02:21→21:09)
[2018-03-23] MEDS: MORPHINE IV PRN (02:22)
--- NOTE | 2018-03-23 09:31 | Progress Note ---
Assessment and Plan - Patient Problems (1) Unstable angina Current Visit: Yes Status: Acute Plan to address problem: Cardiology more in favor of Lt shulder Adhesive Capsulitis No Lexiscan IV Toradol (2) CHF (congestive heart failure) Current Visit: Yes Status: Acute Qualifiers: Heart failure type: diastolic Heart failure chronicity: acute Qualified Code(s): I50.31 - Acute diastolic (congestive) heart failure Plan to address problem: Strict I/O, Monitor uop q shift, daily weight, monitor BP q shift, BNP, Chest x ray, cardiology consulted in ED, supplemental oxygen, pain control, telemetry monitoring, Afterload reduction, (3) CAD (coronary artery disease) Current Visit: Yes Status: Acute Qualifiers: Associated angina: with unstable angina Plan to address problem: Low cholesterol diet, risk factor reduction, therapeutic anticoagulation, pain control, supplemental oxygen (4) Seizure disorder Current Visit: Yes Status: Acute Plan to address problem: seizure precautions, continue prehospital medication. (5) DVT prophylaxis Current Visit: Yes Status: Acute Plan to address problem: SCD to BLE while in bed, Subjective Date of service: 03/23/18 Principal diagnosis: Unstable angina L shoulder pain--Adhesive capsulitis. Interval history: Sx better Objective - Constitutional Vitals: Vital Signs - 12hr 03/22/18 03/22/18 03/23/18 22:18 22:41 00:39 Temperature 97.7 F 98.3 F Pulse Rate 67 62 Respiratory 18 18 Rate Blood Pressure 130/77 122/79 118/78 Blood Pressure [Left] O2 Sat by Pulse 99 98 Oximetry 03/23/18 03/23/18 03/23/18 04:26 04:54 06:50 Temperature 97.8 F Pulse Rate 65 72 Respiratory 18 Rate Blood Pressure 114/76 Blood Pressure [Left] O2 Sat by Pulse 100 96 Oximetry 03/23/18 08:11 Temperature 98.1 F Pulse Rate 66 Respiratory 20 Rate Blood Pressure Blood Pressure 114/76 [Left] O2 Sat by Pulse 100 Oximetry General appearance: Present: no acute distress, well-nourished - EENT Eyes: PERRL, EOM intact ENT: hearing intact, clear oral mucosa Ears: bilateral: normal - Neck Neck: supple, normal ROM - Respiratory Respiratory effort: normal Respiratory: bilateral: CTA - Breasts Breasts: normal - Cardiovascular Rhythm: regular Heart Sounds: Present: S1 & S2. Absent: gallop, rub Extremities: pulses intact, No edema, normal color, Full ROM - Gastrointestinal General gastrointestinal: Present: soft, non-tender, non-distended, normal bowel sounds - Genitourinary Male genitourinary: normal - Integumentary Integumentary: clear, warm, dry - Musculoskeletal Musculoskeletal: 1, strength equal bilaterally - Neurologic Neurologic: moves all extremities - Psychiatric Psychiatric: memory intact, appropriate mood/affect, intact judgment & insight - Labs CBC & Chem 7: 03/22/18 17:15 03/22/18 17:15
[2018-03-23] MEDS ORDERED: PLAVIX PO SCH (10:00)
[2018-03-23] MEDS ORDERED: NON-FORMULARY (Lubiprostone [Amitiza] 24 MCG) PO SCH (10:00)
[2018-03-23] MEDS ORDERED: ASCORBIC ACID PO SCH (10:00)
[2018-03-23] MEDS ORDERED: NON-FORMULARY (Phenytoin Sodium Extended [Phenytoin Sodium Extended] 200 MG) PO SCH (10:00)
[2018-03-23] MEDS ORDERED: VITAMIN B COMPLEX PO SCH (10:00)
[2018-03-23] MEDS: DILANTIN PO SCH ×2 (11:00→21:07)
[2018-03-23] MEDS: LOPRESSOR PO SCH ×2 (11:00→21:08)
[2018-03-23] MEDS: NEURONTIN PO SCH ×2 (11:00→21:06)
[2018-03-23] MEDS: FISH OIL PO SCH (11:00)
[2018-03-23] MEDS: VITAMIN B-12 PO SCH (11:00)
[2018-03-23] MEDS: VITAMIN D3 PO SCH (11:00)
[2018-03-23] MEDS: VITAMIN C PO SCH (11:00)
[2018-03-23] MEDS: PEPCID PO SCH ×2 (11:00→21:08)
--- NOTE | 2018-03-23 13:54 | Consultation ---
History of Present Illness Consult date: 03/23/18 Consult reason: chest pain History of present illness: The patient is a 67-year-old man who is admitted with chest pain. His chest pain is atypical and appears musculoskeletal. Specifically, he has pain in his left arm and left shoulder and left upper chest, made worse by raising his left arm. As a result, he has limited range of motion of that arm. He winces with pain on twisting his thorax to the right and left side. There is no exertional chest pain or angina, no palpitations, no unusual shortness of breath and no edema. EKG done in the hospital showed no acute ischemia or infarction. There is a normal sinus rhythm with evidence of a prior anterior and inferior infarcts. The patient does have an extensive history of coronary artery disease. A year ago, he underwent placement of a 3.5 mm drug-eluting stent to the mid right coronary artery, for treatment of diffuse in-stent restenosis in that segment. At that time, the left coronary system was free of significant disease. He does have an ischemic cardiomyopathy with moderately severe left ventricular dysfunction, most recent laboratory ejection fraction was estimated at 35-40%. He has a defibrillator in situ. Past History Past Medical History: acute GA, arthritis, CAD, COPD, DVT, GERD, hypertension, seizures, other Past Surgical History: cholecystectomy, Other (ICD, Cardiac Stent Placement .) Social history: Family history: hypertension Medications and Allergies Allergies Allergy/AdvReac Type Severity Reaction Status Date / Time Sulfa (Sulfonamide AdvReac Severe Seizure Verified 09/16/13 06:32 Antibiotics) Home Medications Medication Instructions Recorded Confirmed Last Taken Type Ascorbic Acid [Vitamin C] 1 tab PO QDAY 09/16/13 03/23/18 01/26/17 History Aspirin [Aspirin TAB] 81 mg PO QDAY 09/16/13 03/23/18 01/27/17 History Cholecalciferol (Vitamin D3) 1 tab PO QDAY 09/16/13 03/23/18 01/26/17 History [Vitamin D3] Clopidogrel Bisulfate [Clopidogrel] 75 mg PO QDAY 09/16/13 03/23/18 01/27/17 History Cyanocobalamin [Vitamin B-12] 1 tab PO QDAY 09/16/13 03/23/18 01/26/17 History Gabapentin 300 mg PO BID 09/16/13 03/23/1817 History Lansoprazole [Prevacid] 30 mg PO QDAY 09/16/13 03/23/18 01/26/17 History Lubiprostone [Amitiza] 24 mcg PO QDAY 09/16/13 03/23/18 01/26/17 History Metoprolol [Lopressor TAB] 12.5 mg PO BID 09/16/13 03/23/18 01/26/17 History [place]-3 Fatty Acids/Fish Oil [Fish 1,000 mg PO QDAY 09/16/13 03/23/18 01/26/17 History Oil] Phenytoin Sodium Extended 200 mg PO DAILY 09/16/13 03/23/18 01/27/17 History Phenytoin Sodium Extended 300 mg PO HS 09/16/13 03/23/18 01/26/17 History Simvastatin [Zocor TAB] 40 mg PO QHS 09/16/13 03/23/18 01/26/17 History Vitamin B Complex [Super B-50 1 tab PO QDAY 09/16/13 03/23/18 01/26/17 History Complex] Active Meds: Active Medications Acetaminophen (Tylenol) 650 mg PO Q4H PRN PRN Reason: Pain MILD(1-3)/Fever >100.5/NAGEL Albuterol (Proventil) 2.5 mg IH Q4HRT PRN PRN Reason: Shortness Of Breath Ascorbic Acid (Vitamin C) 500 mg PO QDAY [facility] Last Admin: 03/23/18 11:00 Dose: 500 mg Cholecalciferol (Vitamin D3) 1,000 unit PO QDAY [facility] Last Admin: 03/23/18 11:00 Dose: 1,000 unit Cyanocobalamin (Vitamin B-12) 100 mcg PO QDAY [facility] Last Admin: 03/23/18 11:00 Dose: 100 mcg Famotidine (Pepcid) 20 mg PO BID [facility] Last Admin: 03/23/18 11:00 Dose: 20 mg Fish Oil (Fish Oil) 1,000 mg PO QDAY [facility] Last Admin: 03/23/18 11:00 Dose: 1,000 mg Gabapentin (Neurontin) 300 mg PO BID [facility] Last Admin: 03/23/18 11:00 Dose: 300 mg Heparin Sodium/Sodium Chloride (Heparin/ 0.45% Nacl-25,000 Unit/500 Ml) 25,000 unit in 500 mls @ 20 mls/hr IV TITRATE [facility]; Protocol Last Admin: 03/22/18 22:43 Dose: 1,000 units/hr, 20 mls/hr Ketorolac Tromethamine (Toradol) 30 mg IV Q6HR [facility] Stop: 03/25/18 17:59 Metoprolol Tartrate (Lopressor) 12.5 mg PO BID [facility] Last Admin: 03/23/18 11:00 Dose: 12.5 mg Miscellaneous Medication (Lubiprostone [Amitiza]) 24 mcg PO QDAY [facility] Morphine Sulfate (Morphine) 2 mg IV Q4H PRN PRN Reason: Pain, Moderate (4-6) Last Admin: 03/23/18 02:22 Dose: 2 mg Nitroglycerin (Nitrostat) 0.4 mg SL Q5M PRN PRN Reason: Chest Pain Ondansetron HCl (Zofran) 4 mg IV Q8H PRN PRN Reason: Nausea And Vomiting Phenytoin (Dilantin) 200 mg PO QAM [facility] Last Admin: 03/23/18 11:00 Dose: 200 mg Phenytoin (Dilantin) 300 mg PO QHS [facility] Last Admin: 03/22/18 22:40 Dose: 300 mg Pravastatin Sodium (Pravachol) 80 mg PO QHS [facility] Last Admin: 03/22/18 22:40 Dose: 80 mg Sodium Chloride (Sodium Chloride Flush Syringe 10 Ml) 10 ml IV BID [facility] Last Admin: 03/23/18 02:21 Dose: 10 ml Sodium Chloride (Sodium Chloride Flush Syringe 10 Ml) 10 ml IV PRN PRN PRN Reason: LINE FLUSH Sodium Chloride (Sodium Chloride Flush Syringe 10 Ml) 10 ml IV PRN PRN PRN Reason: LINE FLUSH Vitamin B Complex/Folic Acid ([place] Plus Cz) 1 each PO QDAY [facility] Review of Systems Cardiovascular: chest pain, shortness of breath, no orthopnea, no palpitations, no rapid/irregular heart beat, no edema, no syncope, no lightheadedness Physical Examination Vital Signs Temp Pulse Resp BP Pulse Ox 98.8 F 72 14 113/70 100 03/22/18 17:14 03/22/18 17:14 03/22/18 17:14 03/22/18 17:14 03/22/18 17:14 General appearance: no acute distress HEENT: Positive: PERRL Neck: Positive: neck supple Cardiac: Positive: Reg Rate and Rhythm Lungs: Positive: Decreased Breath Sounds Neuro: Positive: Grossly Intact Abdomen: Positive: Soft Male genitourinary: Positive: deferred Skin: Positive: Clear Extremities: Absent: edema Results 03/22/18 17:15 03/22/18 17:15 Cardiac Enzymes 03/22/18 Range/Units 17:50 AST 22 (5-40) units/L Coagulation 03/22/18 Range/Units 19:47 PT 12.4 (12.2-14.9) Sec. INR 0.88 (0.87-1.13) APTT 28.0 (24.2-36.6) Sec. CBC 03/22/18 Range/Units 17:15 WBC 9.5 (4.5-11.0) K/mm3 RBC 4.35 (3.65-5.03) M/mm3 Hgb 13.3 (11.8-15.2) gm/dl Hct 39.9 (35.5-45.6) % Plt Count 201 (140-440) K/mm3 Comprehensive Metabolic Panel 03/22/18 03/22/18 Range/Units 17:15 17:50 Sodium 138 (137-145) mmol/L Potassium 4.5 (3.6-5.0) mmol/L Chloride 100.7 (98-107) mmol/L Carbon Dioxide 26 (22-30) mmol/L BUN 9 (9-20) mg/dL Creatinine 1.0 (0.8-1.5) mg/dL Glucose 94 (75-100) mg/dL Calcium 9.3 (8.4-10.2) mg/dL Direct Bilirubin < 0.2 (0-0.2) mg/dL Indirect Bilirubin 0.0 mg/dL AST 22 (5-40) units/L ALT 21 (7-56) units/L Alkaline Phosphatase 102 (35-129) units/L Total Protein 7.3 (6.3-8.2) g/dL Albumin 4.6 (3.9-5) g/dL EKG interpretations - Telemetry EKG Rhythm: Sinus Rhythm Assessment and Plan - Patient Problems (1) Chest pain Current Visit: Yes Status: Acute Plan to address problem: The patient's presenting chest pain appears musculoskeletal, and positional. Recommended trial of intravenous anti-inflammatory therapy. (2) CAD (coronary artery disease) Current Visit: Yes Status: Acute Qualifiers: Associated angina: with unstable angina Plan to address problem: Coronary artery disease is stable, and asymptomatic, continue medical therapy including dual oral antiplatelet therapy.
[2018-03-23] MEDS: HEPARIN/ 0.45% NACL-25,000 UNIT/500 ML 25,000 UNIT/500 ML BAG IV SCH ×2 (16:43→19:26)
[2018-03-23] MEDS ORDERED: TORADOL IV SCH (18:00)
[2018-03-23] MEDS: LEVAQUIN PO SCH (19:26)
[2018-03-23] MEDS: TORADOL IV SCH (19:29)
[2018-03-23] MEDS: PRAVACHOL PO SCH (21:06)
[2018-03-24] MEDS: TORADOL IV SCH ×3 (00:44→11:41)
[2018-03-24 08:15] LABS: Basophils % (Auto) 0.4 % (0.0-1.8); Eosinophils % (Auto) 0.1 % (0.0-4.3); Lymphocytes % (Auto) 33.6 % (13.4-35.0); Mean Corpuscular HGB Conc 35 % (32-34); Mean Corpuscular Hemoglobin 31 pg (28-32); Mean Corpuscular Volume 90 fl (84-94); Monocytes # (Auto) 0.6 K/mm3 (0.0-0.8); Monocytes % (Auto) 10.2 % (0.0-7.3); Platelet Count 174 K/mm3 (140-440); Red Blood Count 4.45 M/mm3 (3.65-5.03); Red Cell Distribution Width 13.8 % (13.2-15.2)
[2018-03-24 08:38] LABS: Alanine Aminotransferase 75 units/L (7-56); BUN/Creatinine Ratio 13; Blood Urea Nitrogen 12 mg/dL (9-20); Calcium 9.1 mg/dL (8.4-10.2)
[2018-03-24 08:39] LABS: Albumin 3.6 g/dL (3.9-5); Hemolysis Index 11
[2018-03-24] MEDS ORDERED: FOLBEE PLUS CZ PO SCH (10:00)
[2018-03-24] MEDS: FISH OIL PO SCH (10:40)
[2018-03-24] MEDS: DILANTIN PO SCH (10:40)
[2018-03-24] MEDS: LEVAQUIN PO SCH (10:40)
[2018-03-24] MEDS: NEURONTIN PO SCH (10:40)
[2018-03-24] MEDS: VITAMIN C PO SCH (10:41)
[2018-03-24] MEDS: PEPCID PO SCH (10:41)
[2018-03-24] MEDS: VITAMIN D3 PO SCH (10:41)
[2018-03-24] MEDS: VITAMIN B-12 PO SCH (10:42)
[2018-03-24] MEDS: LOPRESSOR PO SCH (10:43)
[2018-03-24] MEDS ORDERED: PLAVIX PO SCH (11:00)
[2018-03-24] MEDS ORDERED: BABY ASPIRIN PO SCH (11:00)
--- NOTE | 2018-03-24 13:25 | Progress Note ---
Assessment and Plan Chest pain, musculoskeletal and positional Ischemic Cardiomyopathy Hypertension Presence of AICD Coronary artery disease Recommendations: Trial of intravenous anti-inflammatory therapy for musculoskeletal and positional chest pain. Continue medical therapy including dual oral antiplatelet therapy. Subjective Date of service: 03/24/18 Principal diagnosis: Unstable angina L shoulder pain--Adhesive capsulitis. Interval history: Patient reports his musculoskeletal chest pain is improving. Objective Vital Signs Temp Pulse Resp BP BP Pulse Ox 03/24/18 11:54 98.0 F 70 18 103/61 97 03/24/18 10:43 67 111/71 03/24/18 09:42 97 03/24/18 07:58 97.5 F L 67 18 111/71 99 03/24/18 06:00 80 03/24/18 05:37 20 03/24/18 05:00 97.8 F 70 18 109/70 98 03/24/18 00:44 20 03/24/18 00:25 98.9 F 69 18 107/73 99 03/23/18 23:15 68 107/73 99 03/23/18 22:00 77 100 03/23/18 21:08 80 115/75 03/23/18 19:57 98.5 F 75 18 115/75 98 03/23/18 19:35 75 115/75 98 03/23/18 17:03 98.7 F 70 18 110/77 96 03/23/18 15:01 75 110/71 97 - Physical Examination General: No Apparent Distress HEENT: Positive: PERRL Cardiac: Positive: Reg Rate and Rhythm Neuro: Positive: Grossly Intact Extremities: Absent: edema - Labs and Meds Cardiac Enzymes 03/24/18 Range/Units 07:31 AST 15 (5-40) units/L CBC 03/24/18 Range/Units 07:31 WBC 6.0 (4.5-11.0) K/mm3 RBC 4.45 (3.65-5.03) M/mm3 Hgb 14.0 (11.8-15.2) gm/dl Hct 40.0 (35.5-45.6) % Plt Count 174 (140-440) K/mm3 Lymph # 2.0 (1.2-5.4) K/mm3 Tift # 0.6 (0.0-0.8) K/mm3 Eos # 0.0 (0.0-0.4) K/mm3 Baso # 0.0 (0.0-0.1) K/mm3 Comprehensive Metabolic Panel 03/24/18 Range/Units 07:31 Sodium 137 (137-145) mmol/L Potassium 4.7 (3.6-5.0) mmol/L Chloride 103.5 (98-107) mmol/L Carbon Dioxide 24 (22-30) mmol/L BUN 12 (9-20) mg/dL Creatinine 0.9 (0.8-1.5) mg/dL Glucose 94 (75-100) mg/dL Calcium 9.1 (8.4-10.2) mg/dL AST 15 (5-40) units/L ALT 75 H (7-56) units/L Alkaline Phosphatase 92 (35-129) units/L Total Protein 6.5 (6.3-8.2) g/dL Albumin 3.6 L (3.9-5) g/dL
--- NOTE | 2018-03-24 13:46 | Discharge Summary ---
Providers - Providers Date of Admission: 03/22/18 20:17 Date of discharge: 03/24/18 Attending physician: NATHALIE LORENZ 03/22/18 Consult to Cardiac Rehabilitation [CONS] Routine Reason For Exam: Phase I 03/22/18 20:17 Consult to Cardiology [CONS] Routine Consulting Provider: LYNNE MCMAHAN Reason For Exam: angina Primary care physician: BERNARDO MYERS Hospitalization Condition: Stable Hospital course: Patient is a 68-year-old man history of cardiomyopathy with defibrillator, coronary artery disease status post cardiac stenting, hypertension COPD and seizure disorder who pw chest pain. -Chest pain, atypical, most likely costochondritis -Right maxillary sinus mucocele: Outpatient ENT referral -Coronary artery disease status post stent: Continue anti-platelets therapy -Cardiomyopathy with defibrillator in place Disposition: DC-01 TO HOME OR SELFCARE Time spent for discharge: 32 min Core Measure Documentation - Palliative Care Palliative Care/ Comfort Measures: Not Applicable - Core Measures Any of the following diagnoses?: none - VTE Discharge Requirements Deep Vein Thrombosis/Pulmonary Embolism Present on Admission: No Has pt received <5 days of overlap therapy or INR<2.0: No Anticoagulant overlap therapy prescribed at discharge: No Contraindication No Overlap Therapy order at DC: Not Indicated Exam - Physical Exam Narrative exam: GEN: WDWN, NAD, Awake, Alert, Orientated HEENT: NCAT, EOMI, PERRL, OP Clear NECK: supple, no adenopathy, no thyromegaly, no JVD CVS/HEART: RRR, normal S1S2, pulses present bilaterally CHEST/LUNGS: CTA B, Symmetrical chest expansion, good air entry bilaterally, reproducible left chest wall tenderness GI/Abdomen: soft, NTND, good bowel sounds, no guarding or rebound /Bladder: no suprapubic tenderness, no CVA or paraspinal tenderness EXT/Skin: no c/c/e, no obvious rash MSK: FROM x 4 Neuro: CN 2-12 grossly intact, no new focal deficits Psych: calm - Constitutional Vitals: Temp Pulse Resp BP Pulse Ox 98.0 F 70 18 103/61 97 03/24/18 11:54 03/24/18 11:54 03/24/18 11:54 03/24/18 11:54 03/24/18 11:54 Plan Activity: other (no strenous activity until cleared by pcp) Diet: low salt Follow up with: LYNNE MCMAHAN MD [Staff Physician] - 7 Days BERNARDO MYERS MD [Primary Care Provider] - 7 Days LOLIS FIGUEROA MD [Staff Physician] - 7 Days Prescriptions: HYDROcodone/APAP 5-325 [[place] 5/325] 1 each PO Q4HR PRN #12 tablet PRN Reason: Pain , Severe (7-10) Ketorolac [Toradol] 10 mg PO Q4HR PRN #10 tablet PRN Reason: Pain, Moderate (4-6)
[2018-03-24 17:01] VITALS: BP 109/68
== END 2018-03-24 16:30 | disposition home or self-care (01) | DRG 206 ==
LOC: ED 17:11 → 4A 20:17
PROVIDERS: ADMIT Internal Medicine; ATTEND Internal Medicine
DX: M94.0 Chondrocostal junction syndrome [Tietze] (principal); I25.110 Atherosclerotic heart disease of native coronary artery with unstable angina pectoris; G40.909 Epilepsy, unspecified, not intractable, without status epilepticus; J44.9 Chronic obstructive pulmonary disease, unspecified; K21.9 Gastro-esophageal reflux disease without esophagitis; M19.90 Unspecified osteoarthritis, unspecified site; J32.9 Chronic sinusitis, unspecified; M75.01 Adhesive capsulitis of right shoulder; I11.0 Hypertensive heart disease with heart failure; I50.9 Heart failure, unspecified; G43.909 Migraine, unspecified, not intractable, without status migrainosus; I25.5 Ischemic cardiomyopathy; Z90.49 Acquired absence of other specified parts of digestive tract; Z95.1 Presence of aortocoronary bypass graft; Z88.2 Allergy status to sulfonamides; I25.2 Old myocardial infarction; Z87.891 Personal history of nicotine dependence; Z82.49 Family history of ischemic heart disease and other diseases of the circulatory system; Z95.810 Presence of automatic (implantable) cardiac defibrillator
CPT/HCPCS: 36415; 70450; 71046; 80048; 80053; 80074; 81001; 83690; 83880; 84484; 85007; 85025; 85520; 85610; 85730; 93005; 93010; A9270-GY; J1644; J1885; J2270; J7040